=== PATIENT | female | born 1980 | race Caucasian/White ===

== ENCOUNTER 2022-10-09 07:20 | Emergency (ER) | payer MEDICAID ==
[~2022-10-09] VITALS: Ht 160 cm; Wt 107.0 kg
[2022-10-09] MEDS ORDERED: BUTALB-ACETAMI1 EACH PO (07:44)
[2022-10-09] MEDS ORDERED: TOPIRAMATE25 M3 PO (07:44)
[2022-10-09 08:05] LABS: BASO # 0.1 10*3/uL (0.0-0.1); BASO % 0.9 % (0.0-1.0); EOS # 0.6 10*3/uL (0.0-0.4); EOS % 7.8 % (1.0-4.0); LYMPH # 2.3 10*3/uL (1.3-4.4); LYMPH % 30.2 % (27.0-41.0); MEAN CELL VOLUME 89.7 fl (81.0-99.0); MEAN CORPUSCULAR HGB 30.3 pg (27.0-31.0); MEAN CORPUSCULAR HGB CONC 33.8 g/dl (33.0-37.0); MONO # 0.4 10*3/uL (0.1-1.0); MONO % 5.1 % (3.0-9.0); NEUT # 4.3 10*3/uL (2.3-7.9); NEUT % 55.7 % (47.0-73.0); PLATELET COUNT AUTOMATED 315 10*3/uL (130-400); RED BLOOD COUNT 4.46 10*6/uL (4.10-5.10); RED CELL DISTRI WIDTH 13.4 % (0-14.5); WHITE BLOOD COUNT 7.7 10*3/uL (4.8-10.8)
[2022-10-09 08:18] LABS: ALKALINE PHOSPHATASE 75 U/L (46-116); BETA-HCG, QUANT < 3.0 mIU/mL (0-10); BUN 12 mg/dl (9-23); CHLORIDE 109 mmol/L (98-107); LIPASE 46 U/L (12-53); POTASSIUM 3.9 mmol/L (3.4-5.1); SGPT/ALT 14 U/L (10-49)
== END 2022-10-09 10:43 | disposition home or self-care (01) ==
LOC: ED 07:20
PROVIDERS: Emergency Medicine
DX: G43.909 Migraine, unspecified, not intractable, without status migrainosus (principal); Z88.0 Allergy status to penicillin